=== PATIENT | female | born 1995 | race Caucasian/White ===

== ENCOUNTER 2020-06-19 11:00 | Emergency (ER) | payer SELFPAY ==
[~2020-06-19] VITALS: Ht 168.9 cm; Wt 58.0 kg
[2020-06-19 11:02] VITALS: BP 95/65
[2020-06-19] MEDS ORDERED: PENI250T2 PO (11:56)
[2020-06-19] MEDS ORDERED: NAPR-56 PO (11:56)
== END 2020-06-19 12:05 | disposition home or self-care (01) ==
LOC: ER 11:01
DX: K08.89 Other specified disorders of teeth and supporting structures (principal); Z88.1 Allergy status to other antibiotic agents
CPT/HCPCS: 99283

== ENCOUNTER 2020-07-06 11:38 | Emergency (ER) | payer MEDICAID ==
[~2020-07-06] VITALS: Ht 167.6 cm; Wt 60.9 kg
[~2020-07-06 11:38] MED LIST: NAPR-56 PO
[2020-07-06 11:53] VITALS: BP 121/70
[2020-07-06] MEDS ORDERED: IBUP-1984 PO (13:27)
== END 2020-07-06 13:50 | disposition home or self-care (01) ==
LOC: ER 11:39
DX: S93.621A Sprain of tarsometatarsal ligament of right foot, initial encounter (principal); M79.671 Pain in right foot; Z88.1 Allergy status to other antibiotic agents; Z79.899 Other long term (current) drug therapy; X58.XXXA Exposure to other specified factors, initial encounter; Y93.89 Activity, other specified; Y92.89 Other specified places as the place of occurrence of the external cause; Y99.8 Other external cause status
CPT/HCPCS: 73630; 99283

== ENCOUNTER 2020-07-09 13:28 | Inpatient (IN) | payer MEDICAID ==
[~2020-07-09] VITALS: Ht 167.6 cm; Wt 54.5 kg
[~2020-07-09 13:28] MED LIST changes: +IBUP-1984 PO
[2020-07-09 15:05] LABS: URINE AMPHETAMINE SCREEN NEGATIVE (Neg); URINE BARBITUATE SCREEN NEGATIVE (Neg); URINE BENZODIAZEPINES SCREEN NEGATIVE (Neg); URINE CANNABINOID SCREEN NEGATIVE (Neg); URINE COCAINE SCREEN NEGATIVE (Neg); URINE METHADONE SCREEN NEGATIVE (Neg); URINE OPIATE SCREEN NEGATIVE (Neg); URINE PHENCYCLIDINE SCREEN NEGATIVE (Neg)
[2020-07-09 15:25] LABS: BASOPHILS % (AUTO) 0.3 % (0-1); EOSINOPHILS % (AUTO) 0.2 % (0-6); HEMATOCRIT 45.3 % (35.0-45.0); LYMPHOCYTES # (AUTO) 1.5 X10'3 (1.1-4.8); LYMPHOCYTES % (AUTO) 13.7 % (21-51); MEAN CORPUSCULAR HEMOGLOBIN 28.6 PG (27.0-31.0); MEAN CORPUSCULAR HGB CONC 33.1 g/dL (33.0-36.5); MEAN CORPUSCULAR VOLUME 86.3 FL (78-98); MEAN PLATELET VOLUME 10.5 FL (7.4-10.4); MONOCYTES # (AUTO) 1.3 X10'3 (0-0.9); MONOCYTES % (AUTO) 11.5 % (2-12); NEUTROPHILS # (AUTO) 8.2 X10'3 (1.8-7.7); NEUTROPHILS % (AUTO) 74.3 % (42-75); PLATELET COUNT 261 X10'3 (140-440); RED BLOOD COUNT 5.25 X10'6 (4.20-5.60); RED CELL DISTRIBUTION WIDTH 14.7 % (11.5-14.5); WHITE BLOOD COUNT 11.1 X10'3 (4.5-11.0)
[2020-07-09 15:36] LABS: ALANINE AMINOTRANSFERASE 18 U/L (12-78); ALBUMIN 4.4 G/DL (3.4-5.0); ALKALINE PHOSPHATASE 157 IU/L (46-116); ANION GAP 23 (8-16); ASPARTATE AMINO TRANSFERASE 16 U/L (10-37); BILIRUBIN,TOTAL 0.7 MG/DL (0.1-1.0); BLOOD UREA NITROGEN 5 MG/DL (7-18); BUN/CREATININE RATIO 6.8 (6.6-38.0); CHLORIDE 100 MMOL/L (99-107); CREATININE 0.74 MG/DL (0.40-0.90); GLUCOSE 448 MG/DL (70-104); POTASSIUM 3.4 MMOL/L (3.5-5.1); SODIUM 131 MMOL/L (135-145); eGFR > 90 ML/MIN
[2020-07-09 15:39] LABS: TOTAL CARBON DIOXIDE 7.8 MMOL/L (24-32)
[2020-07-09] MEDS ORDERED: sodium phosphate inj. 30 MMOL in dextrose 5%-water 250 ML IV PRN (15:45)
[2020-07-09] MEDS: normal saline 1000ml 1,000 ML IV SCH ×3 (15:45→23:45)
[2020-07-09] MEDS ORDERED: potassium CL 20mEq in D5-1/2NS 1,000 ML IV PRN ×2 (15:45→21:20)
[2020-07-09] MEDS ORDERED: potassium Cl 20 mEq SR tablet PO PRN ×3 (15:45→21:15)
[2020-07-09] MEDS ORDERED: sodium phosphate inj. 15 MMOL in dextrose 5%-water 250 ML IV PRN (15:45)
[2020-07-09] MEDS ORDERED: Neutra Phos packet PO PRN (15:45)
[2020-07-09] MEDS ORDERED: sodium bicarbonate (8.4%) inj. 50 MEQ in dextrose 5% water 500ml 250 ML IV PRN (15:45)
[2020-07-09] MEDS ORDERED: potassium CL 10mEq/100ml bag 100 ML IV PRN ×4 (15:45→21:15)
[2020-07-09] MEDS ORDERED: insulin regular, human U-100 3ml vial - multi-dose IV PRN (15:45)
[2020-07-09] MEDS ORDERED: sodium bicarbonate (8.4%) inj. 100 MEQ in dextrose 5% water 500ml 500 ML IV PRN (15:45)
[2020-07-09] MEDS ORDERED: normal saline 1000ml 1,000 ML IV ONE ×2 (15:45)
[2020-07-09 16:29] LABS: PHOSPHORUS 3.1 MG/DL (2.3-4.5)
[2020-07-09] MEDS ORDERED: insulin regular, human 10 units/0.1 ml syringe IV PRN (16:51)
[2020-07-09 17:16] LABS: ABG BASE EXCESS -20.7 mmol/L (-2.0-2.0); ABG HCO3 4.9 mmol/L (22.0-26.0); ABG OXYGEN SATURATION 98.1 % (94-97); ABG PCO2 (T) 13.2 mmHg (32.0-45.0); ABG PO2 (T) 111.7 mmHg (75.0-100.0); ALLEN'S TEST POSITIVE; FCOHb 0.3 % (0.0-3.9); FMetHb 0.4 % (0.0-1.5); FO2Hb 97.4 % (94-97); TOTAL HEMOGLOBIN 15.3 G/dl (12.0-16.0)
[2020-07-09] MEDS: Insulin Reg/NS 100units/100mL 100 ML IV SCH (18:00)
[2020-07-09 18:25] LABS: ALBUMIN 4.4 G/DL (3.4-5.0); ANION GAP 23 (8-16); BLOOD UREA NITROGEN 5 MG/DL (7-18); BUN/CREATININE RATIO 6.3 (6.6-38.0); CALCIUM 8.8 MG/DL (8.5-10.1); CHLORIDE 101 MMOL/L (99-107); GLUCOSE 312 MG/DL (70-104); POTASSIUM 3.5 MMOL/L (3.5-5.1); SODIUM 133 MMOL/L (135-145); eGFR 90 ML/MIN
[2020-07-09 18:31] LABS: TOTAL CARBON DIOXIDE 8.8 MMOL/L (24-32)
[2020-07-09 18:55] LABS: URINE HCG NEGATIVE (NEG)
[2020-07-09 18:56] LABS: CLARITY,URINE CLOUDY (Clear); COLOR,URINE YELLOW (Yellow); GLUCOSE, URINE 500 mg/dl (Neg); KETONES,URINE >=80 mg/dl (Neg); LEUKOCYTE ESTERASE ,URINE SMALL (Neg); NITRITES, URINE NEGATIVE (Neg); OCCULT BLOOD,URINE MODERATE (Neg); PH,URINE 5.5 (4.8-8.0); PROTEIN,URINE 30 mg/dl (Neg); UROBILINOGEN,URINE 0.2 E.U/dL (0.2-1.0)
[2020-07-09 18:58] LABS: UA COLLECTION TYPE CLN CATCH MIDSTREAM
[2020-07-09 19:01] LABS: BACTERIA,URINE 1+ /HPF (Neg); RBC,URINE 20-50 /HPF (0-2); SQUAMOUS EPITHELIAL CELL,UR FEW /LPF (FEW)
--- NOTE | 2020-07-09 19:06 | NUR ---
in a conversation with Dr. Doll she told me that she was aware that the patient's K+ was 3.4 but she wanted the insulin drip to be started anyway. Prior to starting the insulin drip I gave the patient a 20 mEq dose of PO K+ and then started her insulin drip
[2020-07-09] MEDS ORDERED: iohexol 350MG/ML 100ml bottle IV ONE (19:12)
[2020-07-09] MEDS ORDERED: CefTRIAXone/D5W-Rocephin 1gm 50 ML IV ONE (19:20)
[2020-07-09] MEDS ORDERED: K and/or MAG REPLACEMENT MC SCH (20:00)
[2020-07-09] MEDS ORDERED: ondansetron/PF 4mg/2ml inj IV ONE (20:00)
[2020-07-09 20:53] LABS: ALBUMIN 3.5 G/DL (3.4-5.0); ANION GAP 19 (8-16); BLOOD UREA NITROGEN 3 MG/DL (7-18); BUN/CREATININE RATIO 4.5 (6.6-38.0); CALCIUM 7.6 MG/DL (8.5-10.1); CHLORIDE 106 MMOL/L (99-107); CREATININE 0.66 MG/DL (0.40-0.90); GLUCOSE 177 MG/DL (70-104); SODIUM 135 MMOL/L (135-145); eGFR > 90 ML/MIN
[2020-07-09 21:06] LABS: PHOSPHORUS 1.1 MG/DL (2.3-4.5); POTASSIUM 2.8 MMOL/L (3.5-5.1); TOTAL CARBON DIOXIDE 9.8 MMOL/L (24-32)
[2020-07-09] MEDS ORDERED: magnesium hydroxide 30ml (MOM) UD suspension PO PRN (21:15)
[2020-07-09] MEDS ORDERED: acetaminophen 325mg tablet PO PRN (21:15)
[2020-07-09] MEDS ORDERED: ondansetron/PF 4mg/2ml inj IV PRN (21:15)
[2020-07-09] MEDS ORDERED: mag hydrox/Alum hydrox/simeth 30ml oral suspension PO PRN (21:15)
[2020-07-09] MEDS ORDERED: Insulin Reg/NS 100units/100mL 100 ML IV SCH (21:20)
[2020-07-09] MEDS: potassium Cl 20mEq in NS 1,000 ML IV SCH (22:01)
--- NOTE | 2020-07-09 22:44 | NUR ---
Patient in room PCU 3025C. I have received report from V BLOCK SAW OPERATOR and had the opportunity to ask questions and assume patient care.
[2020-07-09 22:45] VITALS: BP 113/70
[2020-07-10 00:13] LABS: ALBUMIN 3.3 G/DL (3.4-5.0); ANION GAP 13 (8-16); BLOOD UREA NITROGEN 3 MG/DL (7-18); BUN/CREATININE RATIO 4.6 (6.6-38.0); CALCIUM 7.6 MG/DL (8.5-10.1); CHLORIDE 110 MMOL/L (99-107); CREATININE 0.65 MG/DL (0.40-0.90); GLUCOSE 169 MG/DL (70-104); SODIUM 139 MMOL/L (135-145); TOTAL CARBON DIOXIDE 15.7 MMOL/L (24-32); eGFR > 90 ML/MIN
[2020-07-10 00:23] LABS: PHOSPHORUS 1.1 MG/DL (2.3-4.5); POTASSIUM 2.8 MMOL/L (3.5-5.1)
[2020-07-10] MEDS: potassium Cl 20mEq in NS 1,000 ML IV SCH ×3 (00:35→17:32)
--- NOTE | 2020-07-10 00:53 | NUR ---
DISCUSSED WITH DR. SOUZA PER CURRENT FLUID ORDERS AND DROPPING BLOOD SUGAR. CURRENT LEVEL AT 100. WILL START ON MODIFIED PROTOCOL FLUIDS 1/2NSD5 @ 100ML/HR CONCURRENT WITH NS + 20K @ 200ML/HR DECREASED FROM 300 ML/HR. WILL CONTINUE TO MONITOR.
[2020-07-10] MEDS: potassium Cl 20 mEq SR tablet PO PRN ×5 (01:30→20:48)
[2020-07-10] MEDS: dextrose 5%-1/2 normal saline 1,000 ML IV SCH ×4 (01:49→17:33)
[2020-07-10 03:00] VITALS: BP 108/56
--- NOTE | 2020-07-10 03:07 | NUR ---
DISCUSSED WITH DR. SOUZA DECREASING BLOOD SUGAR - LAST @ 71 - DR. SOUZA ORDERED ME TO CHANGE FLUID ORDERS: D51/2NS TO 200ML/HR AND NS W/ 20K+ TO 100ML/HR. WILL CHANGE AND CONTINUE TO MONITOR.
[2020-07-10 03:31] LABS: BASOPHILS % (AUTO) 0.2 % (0-1); EOSINOPHILS % (AUTO) 0.4 % (0-6); HEMATOCRIT 38.2 % (35.0-45.0); HEMOGLOBIN 13.2 g/dl (12.0-16.0); LYMPHOCYTES % (AUTO) 19.1 % (21-51); MEAN CORPUSCULAR HEMOGLOBIN 29.2 PG (27.0-31.0); MEAN CORPUSCULAR HGB CONC 34.5 g/dL (33.0-36.5); MEAN CORPUSCULAR VOLUME 84.7 FL (78-98); MEAN PLATELET VOLUME 10.2 FL (7.4-10.4); MONOCYTES # (AUTO) 1.2 X10'3 (0-0.9); MONOCYTES % (AUTO) 11.3 % (2-12); NEUTROPHILS # (AUTO) 7.1 X10'3 (1.8-7.7); PLATELET COUNT 221 X10'3 (140-440); RED BLOOD COUNT 4.51 X10'6 (4.20-5.60); RED CELL DISTRIBUTION WIDTH 14.5 % (11.5-14.5); WHITE BLOOD COUNT 10.3 X10'3 (4.5-11.0)
[2020-07-10] MEDS: normal saline 1000ml 1,000 ML IV SCH ×4 (03:45→13:49)
[2020-07-10 03:58] LABS: ALANINE AMINOTRANSFERASE 16 U/L (12-78); ALBUMIN 3.1 G/DL (3.4-5.0); ALBUMIN/GLOBULIN RATIO 0.9 (1.1-1.5); ALKALINE PHOSPHATASE 90 IU/L (46-116); ANION GAP 10 (8-16); ASPARTATE AMINO TRANSFERASE 11 U/L (10-37); BILIRUBIN,TOTAL 0.6 MG/DL (0.1-1.0); BLOOD UREA NITROGEN 3 MG/DL (7-18); BUN/CREATININE RATIO 8.6 (6.6-38.0); CALCIUM 7.9 MG/DL (8.5-10.1); CHLORIDE 113 MMOL/L (99-107); CREATININE 0.35 MG/DL (0.40-0.90); GLUCOSE 82 MG/DL (70-104); SODIUM 140 MMOL/L (135-145); TOTAL CARBON DIOXIDE 16.6 MMOL/L (24-32); TOTAL PROTEIN 6.4 G/DL (6.4-8.2); eGFR > 90 ML/MIN
--- NOTE | 2020-07-10 06:09 | NUR ---
Problems reprioritized. Patient report given, questions answered & plan of care reviewed with Yolanda EVANS.
--- NOTE | 2020-07-10 06:37 | NUR ---
Student documentation: I have reviewed and agree with all interventions, assessments performed and documented by Neymar EVANS. Student Medication Administration: For this medication-pass time frame, all medication were reviewed, dispensed, administered and documented per hospital policy by Neymar EVANS.
[2020-07-10 07:00] VITALS: BP 97/59
[2020-07-10 07:17] LABS: BASOPHILS % (AUTO) 0.2 % (0-1); EOSINOPHILS # (AUTO) 0.1 X10'3 (0-0.9); EOSINOPHILS % (AUTO) 0.8 % (0-6); HEMOGLOBIN 12.1 g/dl (12.0-16.0); LYMPHOCYTES # (AUTO) 2.1 X10'3 (1.1-4.8); LYMPHOCYTES % (AUTO) 24.2 % (21-51); MEAN CORPUSCULAR HEMOGLOBIN 28.6 PG (27.0-31.0); MEAN CORPUSCULAR HGB CONC 33.7 g/dL (33.0-36.5); MEAN CORPUSCULAR VOLUME 84.9 FL (78-98); MEAN PLATELET VOLUME 10.2 FL (7.4-10.4); MONOCYTES % (AUTO) 12.1 % (2-12); NEUTROPHILS # (AUTO) 5.4 X10'3 (1.8-7.7); NEUTROPHILS % (AUTO) 62.7 % (42-75); PLATELET COUNT 211 X10'3 (140-440); RED BLOOD COUNT 4.25 X10'6 (4.20-5.60); RED CELL DISTRIBUTION WIDTH 14.7 % (11.5-14.5); WHITE BLOOD COUNT 8.5 X10'3 (4.5-11.0)
[2020-07-10 07:26] LABS: ALANINE AMINOTRANSFERASE 15 U/L (12-78); ALBUMIN 2.7 G/DL (3.4-5.0); ALBUMIN/GLOBULIN RATIO 0.9 (1.1-1.5); ALKALINE PHOSPHATASE 78 IU/L (46-116); ANION GAP 8 (8-16); ASPARTATE AMINO TRANSFERASE 8 U/L (10-37); BILIRUBIN,TOTAL 0.6 MG/DL (0.1-1.0); BLOOD UREA NITROGEN 2 MG/DL (7-18); CALCIUM 7.9 MG/DL (8.5-10.1); CHLORIDE 117 MMOL/L (99-107); GLUCOSE 110 MG/DL (70-104); SODIUM 141 MMOL/L (135-145); TOTAL PROTEIN 5.6 G/DL (6.4-8.2); eGFR > 90 ML/MIN
--- NOTE | 2020-07-10 07:34 | NUR ---
Patient in room PCU 3026. I have received report from NATHAN Patel and had the opportunity to ask questions and assume patient care. Patient asleep in bed and in no acute distress.
[2020-07-10] MEDS: K and/or MAG REPLACEMENT MC SCH ×2 (08:00→20:00)
[2020-07-10] MEDS: heparin, porcine 5000 units/ml vial SQ SCH ×2 (09:17→19:21)
--- NOTE | 2020-07-10 09:59 | NUR ---
Orders for HGB A1C put in and to decrease insulin drip to 3 units/hr put in per Dr. Novak.
[2020-07-10 11:00] VITALS: BP 92/61
[2020-07-10 11:00] LABS: ALBUMIN 2.6 G/DL (3.4-5.0); ANION GAP 11 (8-16); BLOOD UREA NITROGEN 2 MG/DL (7-18); BUN/CREATININE RATIO 5.1 (6.6-38.0); CALCIUM 7.4 MG/DL (8.5-10.1); CHLORIDE 114 MMOL/L (99-107); CREATININE 0.39 MG/DL (0.40-0.90); GLUCOSE 96 MG/DL (70-104); SODIUM 142 MMOL/L (135-145); TOTAL CARBON DIOXIDE 17.4 MMOL/L (24-32); eGFR > 90 ML/MIN
[2020-07-10 11:11] LABS: POTASSIUM 2.9 MMOL/L (3.5-5.1)
--- NOTE | 2020-07-10 11:22 | NUR ---
Paged Dr. Novak regarding critical result K 2.9 PAGER ID: [phone] MESSAGE: [phone]. Pham Valenzuela. Critical results K of 2.9. Replacing per protocol. Thank you. Yolanda EVANS x [phone]
[2020-07-10] MEDS: Insulin Reg/NS 100units/100mL 100 ML IV SCH (13:13)
--- NOTE | 2020-07-10 14:25 | NUR ---
DM consult. Admit with new onset Type 1 DM with DKA, A1c 11.4%. Glucose on admit 448 mg/dl. Per H&P pt presented to ED with c/o profound thirst, drinking 3 gallons of water daily for past three weeks. Urine ketone positive. Pt met at bedside for initial DM education, reviewed types of carbohydrates, serving sizes, physiology of type 1 DM, DM sick day rules, DKA. Provided pt with written DM education handout, pt to review and RD will return tomorrow for follow up education with patient and to include her mother on phone call. Discussed above with bedside RN. Will continue to follow. Recommend: 1. continue carb controlled diet 2. weight per rx Addendum: 07/10/20 at [address] Amended: Links added.
[2020-07-10 14:46] LABS: ALBUMIN 2.7 G/DL (3.4-5.0); ANION GAP 8 (8-16); BLOOD UREA NITROGEN 1 MG/DL (7-18); BUN/CREATININE RATIO 2.4 (6.6-38.0); CALCIUM 7.8 MG/DL (8.5-10.1); CHLORIDE 112 MMOL/L (99-107); CREATININE 0.41 MG/DL (0.40-0.90); GLUCOSE 106 MG/DL (70-104); SODIUM 141 MMOL/L (135-145); TOTAL CARBON DIOXIDE 21.1 MMOL/L (24-32); eGFR > 90 ML/MIN
--- NOTE | 2020-07-10 14:56 | NUR ---
Paged Dr. Novak regarding patient's current labs. PAGER ID: [phone] MESSAGE: [phone]. Pham Valenzuela. Patient's CO2 21.1, and anion gap is 8. Critical result of K of 3.0, but we are currently replacing. Thank you. Yolanda EVANS x [phone] Addendum: 07/10/20 at 1808 by Yolanda Whittington RN Dr. Novak called back and stated to feed the patient dinner per protocol.
[2020-07-10 15:50] VITALS: BP 104/72
--- NOTE | 2020-07-10 17:39 | NUR ---
[place] documentation: I have reviewed and agree with all interventions, assessments performed and documented by NATHAN Vargas. [place] Medication Administration: For this medication-pass time frame, all medication were reviewed, dispensed, administered and documented per hospital policy by NATHAN Vargas.
--- NOTE | 2020-07-10 18:07 | NUR ---
Problems reprioritized. Patient report given, questions answered & plan of care reviewed with NATHAN Patel. Patient stable at transfer of care.
--- NOTE | 2020-07-10 18:25 | NUR ---
Patient in room PCU 3026. I have received report from Yolanda EVANS and had the opportunity to ask questions and assume patient care.
[2020-07-10 18:43] LABS: ALBUMIN 2.8 G/DL (3.4-5.0); ANION GAP 9 (8-16); BLOOD UREA NITROGEN 1 MG/DL (7-18); BUN/CREATININE RATIO 1.8 (6.6-38.0); CALCIUM 7.6 MG/DL (8.5-10.1); CHLORIDE 110 MMOL/L (99-107); CREATININE 0.56 MG/DL (0.40-0.90); GLUCOSE 94 MG/DL (70-104); POTASSIUM 3.1 MMOL/L (3.5-5.1); SODIUM 140 MMOL/L (135-145); TOTAL CARBON DIOXIDE 20.8 MMOL/L (24-32); eGFR > 90 ML/MIN
[2020-07-10] MEDS ORDERED: glucagon, human recombinant 1mg kit SUBCUT PRN (18:45)
[2020-07-10] MEDS ORDERED: MESSAGE TO PHARMACY PO ONE (18:45)
[2020-07-10] MEDS ORDERED: dextrose ORAL solution 15 GM/59 ML bottle PO PRN ×2 (18:45)
[2020-07-10] MEDS ORDERED: dextrose 50%-water 50ml dispensing syringe IV PRN ×2 (18:45)
[2020-07-10] MEDS: insulin Lispro (HumaLOG) vial - multi-dose SQ SCH (19:14)
--- NOTE | 2020-07-10 20:41 | NUR ---
Discussed with Dr. Hernandez patient closure of DKA and inquired about any additional fluid orders following discontinuation of all previous fluid orders. MD replied with no fluids orders necessary. Will continue to monitor.
[2020-07-10] MEDS ORDERED: insulin glargine (Lantus) pen - multi-dose SQ SCH (21:00)
[2020-07-11 05:19] LABS: ALANINE AMINOTRANSFERASE 17 U/L (12-78); ALBUMIN 2.7 G/DL (3.4-5.0); ALBUMIN/GLOBULIN RATIO 0.9 (1.1-1.5); ALKALINE PHOSPHATASE 73 IU/L (46-116); ANION GAP 10 (8-16); ASPARTATE AMINO TRANSFERASE 17 U/L (10-37); BILIRUBIN,TOTAL 0.8 MG/DL (0.1-1.0); BLOOD UREA NITROGEN 2 MG/DL (7-18); BUN/CREATININE RATIO 4.2 (6.6-38.0); CALCIUM 8.3 MG/DL (8.5-10.1); CHLORIDE 109 MMOL/L (99-107); CREATININE 0.48 MG/DL (0.40-0.90); GLUCOSE 208 MG/DL (70-104); POTASSIUM 3.3 MMOL/L (3.5-5.1); SODIUM 142 MMOL/L (135-145); TOTAL CARBON DIOXIDE 23.1 MMOL/L (24-32); TOTAL PROTEIN 5.7 G/DL (6.4-8.2); eGFR > 90 ML/MIN
[2020-07-11] MEDS: normal saline 1000ml 1,000 ML IV SCH ×2 (05:22→05:23)
[2020-07-11] MEDS: dextrose 5%-1/2 normal saline 1,000 ML IV SCH ×2 (05:22→05:23)
[2020-07-11] MEDS: potassium Cl 20mEq in NS 1,000 ML IV SCH (05:22)
[2020-07-11 05:24] LABS: BASOPHILS % (AUTO) 0.2 % (0-1); EOSINOPHILS # (AUTO) 0.1 X10'3 (0-0.9); EOSINOPHILS % (AUTO) 1.9 % (0-6); HEMATOCRIT 36.7 % (35.0-45.0); HEMOGLOBIN 12.4 g/dl (12.0-16.0); LYMPHOCYTES # (AUTO) 2.3 X10'3 (1.1-4.8); LYMPHOCYTES % (AUTO) 44.2 % (21-51); MEAN CORPUSCULAR HEMOGLOBIN 28.4 PG (27.0-31.0); MEAN CORPUSCULAR HGB CONC 33.9 g/dL (33.0-36.5); MEAN CORPUSCULAR VOLUME 83.8 FL (78-98); MEAN PLATELET VOLUME 9.9 FL (7.4-10.4); MONOCYTES # (AUTO) 0.6 X10'3 (0-0.9); MONOCYTES % (AUTO) 12.2 % (2-12); NEUTROPHILS # (AUTO) 2.1 X10'3 (1.8-7.7); NEUTROPHILS % (AUTO) 41.5 % (42-75); PLATELET COUNT 204 X10'3 (140-440); RED BLOOD COUNT 4.38 X10'6 (4.20-5.60); RED CELL DISTRIBUTION WIDTH 14.9 % (11.5-14.5); WHITE BLOOD COUNT 5.1 X10'3 (4.5-11.0)
--- NOTE | 2020-07-11 06:28 | NUR ---
Patient in room PCU 3026. I have received report from NATHAN Patel and had the opportunity to ask questions and assume patient care. Patient awake in bed and in no acute distress.
[2020-07-11 07:00] VITALS: BP 88/53
[2020-07-11] MEDS: K and/or MAG REPLACEMENT MC SCH (08:00)
[2020-07-11] MEDS: heparin, porcine 5000 units/ml vial SQ SCH (08:00)
[2020-07-11] MEDS: insulin Lispro (HumaLOG) vial - multi-dose SQ SCH ×2 (08:30→13:24)
[2020-07-11] MEDS ORDERED: HUM7525 SQ (13:20)
[2020-07-11] MEDS ORDERED: LANTUS SQ (13:20)
--- NOTE | 2020-07-11 14:40 | NUR ---
DM education. RD followed up with patient today for reinforcement of DM education. Addendum: 07/11/20 at [address] Amended: Links added.
--- NOTE | 2020-07-11 15:16 | NUR ---
Paged Dr. Novak regarding patient's lantus not covered by their insurance. PAGER ID: [phone] MESSAGE: [phone]. Pham Valenzuela. Patient's lantus is not covered by their insurance. May I change the prescription? Thank you. Yolanda EVANS x [phone] Addendum: 07/11/20 at 1531 by Yolanda Whittington RN Dr. Novak called back and adjusted the long-acting insulin for what is covered by her insulin.
--- NOTE | 2020-07-11 15:40 | NUR ---
Patient stable for discharge per MD orders. All discharge instructions reviewed and questions answered appropriately. Belongings collected and sent with patient. New prescriptions were e-scripted to Yamilet Catalan. Patient educated on insulin administration. Patient will make an appointment to establish a PCP for her diabetes. PIVs discontinued. library monitor discontinued. Patient wheeled down to lobby and left via private vehicle.
== END 2020-07-11 15:40 | disposition home or self-care (01) | DRG 420 ==
LOC: ER 13:29 → ED HOLD 21:15 → PCU 3S 22:25
PROVIDERS: ADMIT Internal Medicine; ATTEND Family Medicine
DX: E11.10 Type 2 diabetes mellitus with ketoacidosis without coma (principal); N39.0 Urinary tract infection, site not specified; Z20.828 Contact with and (suspected) exposure to other viral communicable diseases; F11.10 Opioid abuse, uncomplicated; Z88.8 Allergy status to other drugs, medicaments and biological substances; Z83.3 Family history of diabetes mellitus
CPT/HCPCS: 36415; 36600; 71045; 71275; 80048; 80053; 80305; 81001; 81025; 82009; 82803; 82948; 83036; 84100; 84484; 85018; 85025; 85379; 87081; 87635; 93005; 94760; 99285; G0378; J0696; J1644; J1815; J2405; J3480; J7030; Q9967

== ENCOUNTER 2020-07-13 15:18 | Emergency (ER) | payer MEDICAID ==
[~2020-07-13] VITALS: Ht 167.6 cm; Wt 80.0 kg
[~2020-07-13 15:18] MED LIST changes: +HUM7525 SQ; -IBUP-1984 PO; +LANTUS SQ; -NAPR-56 PO
[2020-07-13] MEDS ORDERED: normal saline 1000ML IV soln IVB ONE ×2 (15:45→16:20)
[2020-07-13 16:00] LABS: BASOPHILS % (AUTO) 0.3 % (0-1); EOSINOPHILS # (AUTO) 0.1 X10'3 (0-0.9); HEMATOCRIT 39.3 % (35.0-45.0); HEMOGLOBIN 13.1 g/dl (12.0-16.0); LYMPHOCYTES # (AUTO) 2.1 X10'3 (1.1-4.8); MEAN CORPUSCULAR HEMOGLOBIN 28.7 PG (27.0-31.0); MEAN CORPUSCULAR HGB CONC 33.4 g/dL (33.0-36.5); MEAN PLATELET VOLUME 10.2 FL (7.4-10.4); MONOCYTES # (AUTO) 0.5 X10'3 (0-0.9); MONOCYTES % (AUTO) 9.7 % (2-12); NEUTROPHILS # (AUTO) 2.6 X10'3 (1.8-7.7); PLATELET COUNT 222 X10'3 (140-440); RED BLOOD COUNT 4.57 X10'6 (4.20-5.60); RED CELL DISTRIBUTION WIDTH 15.1 % (11.5-14.5); WHITE BLOOD COUNT 5.2 X10'3 (4.5-11.0)
[2020-07-13 16:15] LABS: ALANINE AMINOTRANSFERASE 30 U/L (12-78); ALBUMIN 3.4 G/DL (3.4-5.0); ALBUMIN/GLOBULIN RATIO 0.9 (1.1-1.5); ALKALINE PHOSPHATASE 114 IU/L (46-116); ANION GAP 8 (8-16); ASPARTATE AMINO TRANSFERASE 46 U/L (10-37); BILIRUBIN,TOTAL 0.3 MG/DL (0.1-1.0); BLOOD UREA NITROGEN 12 MG/DL (7-18); BUN/CREATININE RATIO 9.2 (6.6-38.0); CALCIUM 8.8 MG/DL (8.5-10.1); CHLORIDE 102 MMOL/L (99-107); GLUCOSE 430 MG/DL (70-104); LIPASE 140 U/L (73-393); POTASSIUM 3.8 MMOL/L (3.5-5.1); SODIUM 137 MMOL/L (135-145); TOTAL CARBON DIOXIDE 26.6 MMOL/L (24-32); TOTAL PROTEIN 7.2 G/DL (6.4-8.2); eGFR 51 ML/MIN
[2020-07-13] MEDS ORDERED: insulin regular, human 10 units/0.1 ml syringe IV ONE (16:20)
[2020-07-13 16:57] LABS: URINE HCG NEGATIVE (NEG)
[2020-07-13 17:06] LABS: CLARITY,URINE CLEAR (Clear); COLOR,URINE STRAW (Yellow); GLUCOSE, URINE >=1000 mg/dl (Neg); KETONES,URINE TRACE mg/dl (Neg); LEUKOCYTE ESTERASE ,URINE TRACE (Neg); NITRITES, URINE NEGATIVE (Neg); OCCULT BLOOD,URINE NEGATIVE (Neg); PROTEIN,URINE NEGATIVE (Neg); UROBILINOGEN,URINE 0.2 E.U/dL (0.2-1.0)
[2020-07-13 17:09] LABS: UA COLLECTION TYPE CLN CATCH MIDSTREAM
[2020-07-13 17:14] LABS: BACTERIA,URINE FEW /HPF (Neg); MUCUS STRANDS NONE SEEN /LPF (Neg); RBC,URINE NONE SEEN /HPF (0-2); SQUAMOUS EPITHELIAL CELL,UR FEW /LPF (FEW); WBC,URINE 0-4 /HPF (0-4)
[2020-07-13 19:06] VITALS: BP 90/63
== END 2020-07-13 19:08 | disposition home or self-care (01) ==
LOC: ER 15:18
DX: E10.65 Type 1 diabetes mellitus with hyperglycemia (principal); Z79.4 Long term (current) use of insulin; Z88.1 Allergy status to other antibiotic agents; Z79.899 Other long term (current) drug therapy
CPT/HCPCS: 36415; 80053; 81001; 81025; 82948; 83690; 85025; 87088; 96361; 96374; 99283; J1815; J7030

== ENCOUNTER 2020-10-01 16:39 | Emergency (ER) | payer MEDICAID ==
[~2020-10-01 16:39] MED LIST changes: -LANTUS SQ
--- NOTE | 2020-10-01 17:48 | NUR ---
PA GOOD AT BEDSIDE
[2020-10-01] MEDS ORDERED: normal saline 1000ML IV soln IVB ONE (18:00)
[2020-10-01] MEDS ORDERED: insulin regular, human 10 units/0.1 ml syringe IV ONE (18:30)
[2020-10-01 18:52] LABS: BASOPHILS % (AUTO) 0.2 % (0-1); EOSINOPHILS # (AUTO) 0.1 X10'3 (0-0.9); EOSINOPHILS % (AUTO) 0.8 % (0-6); HEMATOCRIT 45.9 % (35.0-45.0); HEMOGLOBIN 14.9 g/dl (12.0-16.0); LYMPHOCYTES # (AUTO) 2.8 X10'3 (1.1-4.8); LYMPHOCYTES % (AUTO) 21.2 % (21-51); MEAN CORPUSCULAR HEMOGLOBIN 27.5 PG (27.0-31.0); MEAN CORPUSCULAR HGB CONC 32.4 g/dL (33.0-36.5); MEAN CORPUSCULAR VOLUME 84.7 FL (78-98); MEAN PLATELET VOLUME 10.2 FL (7.4-10.4); MONOCYTES # (AUTO) 1.2 X10'3 (0-0.9); MONOCYTES % (AUTO) 9.3 % (2-12); NEUTROPHILS % (AUTO) 68.5 % (42-75); PLATELET COUNT 277 X10'3 (140-440); RED BLOOD COUNT 5.41 X10'6 (4.20-5.60); RED CELL DISTRIBUTION WIDTH 13.5 % (11.5-14.5); WHITE BLOOD COUNT 13.1 X10'3 (4.5-11.0)
[2020-10-01 19:06] LABS: ALANINE AMINOTRANSFERASE 17 U/L (12-78); ALBUMIN 4.3 G/DL (3.4-5.0); ALKALINE PHOSPHATASE 148 IU/L (46-116); ANION GAP 11 (8-16); ASPARTATE AMINO TRANSFERASE 10 U/L (10-37); BILIRUBIN,TOTAL 0.4 MG/DL (0.1-1.0); BLOOD UREA NITROGEN 14 MG/DL (7-18); BUN/CREATININE RATIO 20.3 (6.6-38.0); CALCIUM 9.4 MG/DL (8.5-10.1); CHLORIDE 99 MMOL/L (99-107); CREATININE 0.69 MG/DL (0.40-0.90); GLUCOSE 312 MG/DL (70-104); SODIUM 137 MMOL/L (135-145); TOTAL CARBON DIOXIDE 27.2 MMOL/L (24-32); TOTAL PROTEIN 8.8 G/DL (6.4-8.2); eGFR > 90 ML/MIN
[2020-10-01 19:16] LABS: MAGNESIUM 2.5 MG/DL (1.5-2.4)
[2020-10-01] MEDS ORDERED: INSU100V9 SQ (21:35)
[2020-10-01] MEDS ORDERED: NOVLG SQ (21:35)
[2020-10-01 21:53] VITALS: BP 104/63
== END 2020-10-01 21:52 | disposition home or self-care (01) ==
LOC: ER 16:39
DX: E11.65 Type 2 diabetes mellitus with hyperglycemia (principal); R06.02 Shortness of breath; M54.5 Low back pain; Z72.89 Other problems related to lifestyle; Z88.1 Allergy status to other antibiotic agents; Z79.4 Long term (current) use of insulin
CPT/HCPCS: 36415; 80053; 82009; 82948; 83735; 84443; 85025; 96361; 96374; 99285; J1815; J7030

== ENCOUNTER 2024-09-26 13:34 | Emergency (ER) | payer MEDICAID ==
[~2024-09-26] VITALS: Ht 167.6 cm; Wt 73.1 kg
[~2024-09-26 13:34] MED LIST changes: +INSU100V9 SQ; +NOVLG SQ
[2024-09-26 14:09] VITALS: BP 106/63; PULSE 91; RESP 18; TEMP 97.6; O2SAT 98
== END 2024-09-26 16:29 | disposition left against medical advice (07) ==
LOC: ER 13:34
DX: K08.89 Other specified disorders of teeth and supporting structures (principal); Z88.1 Allergy status to other antibiotic agents; Z53.21 Procedure and treatment not carried out due to patient leaving prior to being seen by health care provider